=== PATIENT | male | born 1975 | race Caucasian/White ===

== ENCOUNTER 2020-04-09 11:40 | Emergency (ER) | payer BC, SELFPAY ==
[2020-04-09 12:07] VITALS: BP 124/76; PULSE 68; RESP 18; TEMP 36.6; O2SAT 100; BMI 22.9
--- NOTE | 2020-04-09 12:22 | ED.ANIMALBIT ---
HPI - Animal Bite <RIAZ Shanks - Last Filed: 04/09/20 17:16> General Chief Complaint: Animal Bite Stated Complaint: Rabies Vaccine Time Seen by Provider: 04/09/20 11:50 Source: patient Mode of arrival: Ambulatory Limitations: no limitations History of Present Illness HPI narrative: 45-year-old healthy male presents emergency department for a bat exposure. Patient states he was sleeping in a house and woke up to a bat flying over his face. At one point the bat got caught under the blankets on the bed. Eventually, they she got the bat to fly outside. This happened approximately 3 days ago, patient reports they checked the CDC recommendations were to receive rabies vaccinations if you cannot confirm that the bat did not make skin contact. Patient denies any symptoms such as fevers, chills, nausea, vomiting, diarrhea, chest pain, shortness of breath, headaches, vision changes, or any other concerns. He denies any allergies or any major medical issues. Related Data Allergies Allergy/AdvReac Type Severity Reaction Status Date / Time No Known Drug Allergies Allergy Verified 04/09/20 13:28 Review of Systems <RIAZ Shanks - Last Filed: 04/09/20 17:16> Review of Systems Narrative: REVIEW OF SYSTEMS: GENERAL: Denies fever or chills. HENT: No head trauma, hearing loss or sore throat. EYES: No loss of vision, double vision, eye pain, or irritation. CARDIOVASCULAR: No chest pain or syncope. RESPIRATORY: No shortness of breath or cough. GASTROINTESTINAL: No nausea, vomiting, diarrhea, or constipation. GENITOURINARY: No flank pain or dysuria. MUSCULOSKELETAL: No pain, weakness, or deformities. INTEGUMENTARY: No rash, lesions, or pruritus. NEURO: No numbness or tingling. PSYCH: No behavior or mood changes. Patient History <RIAZ Shanks - Last Filed: 04/09/20 17:16> Medical History No significant medical problems (Acute) Social History Smoking Status: Never smoker Smoking Status: Never smoker alcohol intake frequency: 0-2 drinks per day Substance Use Type: does not use Exam <RIAZ Shanks - Last Filed: 04/09/20 17:16> Initial Vital Signs Initial Vital Signs: Vital Signs Temperature 98 F 04/09/20 12:07 Pulse Rate 68 04/09/20 12:07 Respiratory Rate 18 04/09/20 12:07 Blood Pressure 124/76 04/09/20 12:07 Pulse Oximetry 100 04/09/20 12:07 PHYSICAL EXAMINATION: GENERAL: Well groomed, alert, and cooperative. Answers questions promptly and appropriately. Vital signs noted. HENT: Normocephalic, atraumatic. Ear canals patent. Oral mucosa is pink and moist. EYES: Conjunctiva pink, sclera white, no periorbital swelling. CHEST: Normal to inspection and without deformities. CARDIOVASCULAR: Regular rate. RESPIRATORY: Normal respiratory rate, trachea midline, airway patent. No stridor, nasal flaring or accessory muscle use. MUSCULOSKELETAL: Normal gait and coordination. Equal tone and mass bilaterally. EXTREMITIES: CMS intact. Moves all extremities. SKIN: Warm, dry, soft, appropriate color for ethnicity. No lesions, rashes, or wounds. NEURO: Alert and Oriented X 3. Good coordination. No ataxia, or sensory deficits, or cognitive issues. PSYCH: Appropriate affect and mood. <Tejas Vicente MD - Last Filed: 04/09/20 18:49> Initial Vital Signs Initial Vital Signs: Vital Signs Temperature 98 F 04/09/20 12:07 Pulse Rate 68 04/09/20 12:07 Respiratory Rate 18 04/09/20 12:07 Blood Pressure 124/76 04/09/20 12:07 Pulse Oximetry 100 04/09/20 12:07 Course <RIAZ Shanks - Last Filed: 04/09/20 17:16> Orders Ordered: Discontinued Medications Rabies Immune Globulin (Hyperrab) 1,452 unit 20 unit/kg (1452 unit) IM NOW ONE Stop: 04/09/20 12:19 Last Admin: 04/09/20 13:29 Dose: 1,452 unit Documented by: JOSEPH Rabies Vaccine (Rabavert) 2.5 units IM .ONCE ONE Stop: 04/09/20 12:19 Last Admin: 04/09/20 13:28 Dose: 2.5 units Documented by: JOSEPH Vital Signs Vital signs: Vital Signs - 8 hr 04/09/20 12:07 04/09/20 14:27 Temperature 98 F 98.0 F Pulse Rate 68 62 Respiratory Rate 18 16 Blood Pressure 124/76 120/74 Pulse Oximetry 100 99 <Tejas Vicente MD - Last Filed: 04/09/20 18:49> Orders Ordered: Discontinued Medications Rabies Immune Globulin (Hyperrab) 1,452 unit 20 unit/kg (1452 unit) IM NOW ONE Stop: 04/09/20 12:19 Last Admin: 04/09/20 13:29 Dose: 1,452 unit Documented by: JOSEPH Rabies Vaccine (Rabavert) 2.5 units IM .ONCE ONE Stop: 04/09/20 12:19 Last Admin: 04/09/20 13:28 Dose: 2.5 units Documented by: JOSEPH Vital Signs Vital signs: Vital Signs - 8 hr 04/09/20 12:07 04/09/20 14:27 Temperature 98 F 98.0 F Pulse Rate 68 62 Respiratory Rate 18 16 Blood Pressure 124/76 120/74 Pulse Oximetry 100 99 MDM - Animal Bite <RIAZ Shanks - Last Filed: 04/09/20 17:16> Medical Records Attestation: I reviewed the patient's medical records. Lab Data Attestation: I reviewed the patient's lab results. MDM Narrative Medical decision making narrative: 45-year-old male reporting about exposure and requesting vaccination. Discussion of risks and benefits, patient is requesting immunoglobulin and vaccination, both given today. Patient was counseled extensively about the importance of follow-up for repeat vaccinations of the next few weeks. Patient is from [place] and plans on following up in his hometown. Return precautions given for new or worsening symptoms. Patient agreed to plan of care verbalized understanding. Discharge Plan Departure Patient Disposition: Home Clinical Impression: Exposure to bat without known bite Discharge Date/Time: 04/09/20 14:37 Instructions: DI for Rabies Vaccine Activity Restrictions/Additional Instructions: Thank you for entrusting me with your care today. As discussed, a rabies vaccination and a rabies immunoglobulin was administered today. You will need additional rabies vaccinations on Day 3, Day 7, and Day 14. Today is counted as day 0. Please call to arrange follow-up with your facility in your hometown or return to the emergency department. Return emergency department for any new or worsening symptoms such as headaches, unusual symptoms, seizures, or any other concerns.
[2020-04-09] MEDS: RABIES VACCINE (RABAVERT) 2.5 UNITS SYRINGE IM (13:28)
[2020-04-09] MEDS: RABIES IMMUNE GLOBULIN 300 UNIT/ML 5 ML VIAL 1452 UNIT IM (13:29)
[2020-04-09 14:27] VITALS: BP 120/74; PULSE 62; RESP 16; TEMP 36.7; O2SAT 99
== END 2020-04-09 14:37 | disposition home or self-care (01) ==
PROVIDERS: Emergency Provider Nurse Practitioner
DX: Z20.9 Contact with and (suspected) exposure to unspecified communicable disease (principal); Z23 Encounter for immunization
CPT/HCPCS: 90375; 90471; 90675; 96372; 99283